=== PATIENT | female | born 1960 | race Caucasian/White ===

== ENCOUNTER 2017-05-03 10:12 | Outpatient (CLI) | payer MEDICARE ==
--- NOTE | 2017-05-03 15:35 | Diagnostic Imaging Report ---
CHAO PETERSEN [facility] [address] [facility] [address] [place], [place]. [address] Report Submission Date: May 03, 2017 12:33:27 PM CDT Patient Study Name: MARTINE VEGA Date: May 03, 2017 10:18:40 AM CDT Modality Type: CR Gender: F Description: CHEST : 58 Institution: [facility] Physician: CHAO PETERSEN Examination: PA and lateral chest. History: Evaluate lung ponce. Findings: PA lateral chest demonstrate a normal cardiac and mediastinal silhouette. No focal infiltrate. No effusion. No blunting of the costophrenic margins. Osseous structures are appropriate for age. Impression: No acute pulmonary process. Electronically signed on May 03, 2017 12:33:27 PM CDT by: James CARRIZALES
--- NOTE | 2017-05-03 15:36 | Diagnostic Imaging Report ---
CHAO PETERSEN [facility] [address] [facility].[address] [address] Report Submission Date: May 03, 2017 12:32:48 PM CDT Patient Study Name: MARTINE VEGA Date: May 03, 2017 10:23:37 AM CDT Modality Type: CR Gender: F Description: CHEST : 58 Institution: [facility] Physician: CHAO PETERSEN Examination: Plain film sternum History: Discomfort Comparison exams: None provided Findings: 2 views of the sternum demonstrates normal cortical margins. No evidence for fracture or posterior displacement. No retrosternal/anterior mediastinal soft tissue abnormalities. Impression: No sternal abnormalities. Electronically signed on May 03, 2017 12:32:48 PM CDT by: James CARRIZALES
== END 2017-05-03 10:13 ==
LOC: RAD 10:12
PROVIDERS: ATTEND Family Medicine
DX: R07.9 Chest pain, unspecified (principal)
CPT/HCPCS: 71020; 71120

== ENCOUNTER 2017-06-01 17:22 | Outpatient (CLI) | payer MEDICARE ==
[2017-06-01 17:50] LABS: eGFR (African) > 60; eGFR (Non-African) > 60
[2017-06-01 17:51] LABS: BASOPHILS % 0.7 (0.0-1.5); EOSINOPHILS % 1.5 % (0.0-6.8); MEAN CORPUSCULAR HEMOGLOBIN 30.7 pg (28.0-34.0); MEAN CORPUSCULAR VOLUME 88.7 fl (80.0-100.0); MONOCYTES % 5.1 % (0.0-11.0); NEUTROPHILS # 4.1 # k/uL (1.4-7.7)
== END 2017-06-01 17:23 ==
LOC: LAB 17:22
PROVIDERS: ATTEND Family Medicine
DX: R07.9 Chest pain, unspecified (principal)
CPT/HCPCS: 36415; 80048; 85025

== ENCOUNTER 2017-06-02 07:52 | Outpatient (CLI) | payer MEDICARE ==
--- NOTE | 2017-06-02 08:51 | Diagnostic Imaging Report ---
CHAO PETERSEN - RAFFI [facility] [address] [facility].[address] [address] Report Submission Date: Jun 02, 2017 8:36:05 AM CDT Patient Study Name: MARTINE VEGA Date: Jun 02, 2017 8:12:57 AM CDT Modality Type: CT\SR Gender: F Description: CT CHEST W/ CONTRAST : 58 Institution: [facility] Physician: CHAO PETERSEN - RAFFI CT chest with contrast. History: Chest pain and dyspnea on exertion. Technique: Transaxial computed tomography images of the chest were obtained following the uneventful administration of intravenous contrast according to standard protocol. Findings: The heart size is normal. There is no adenopathy present within the chest. Vascular structures are normal. The lungs are clear. No pleural effusion or pneumothorax identified. Small apical blebs are noted. Limited views of the upper abdomen are unremarkable. The osseous structures are normal. Impression: 1. Mild apical paraseptal emphysematous change noted. 2. No acute pulmonary infiltrate. Electronically signed on Jun 02, 2017 8:36:05 AM CDT by: Tomy CARRIZALES
== END 2017-06-02 07:53 ==
LOC: RAD 07:52
PROVIDERS: ATTEND Family Medicine
DX: R07.9 Chest pain, unspecified (principal)
CPT/HCPCS: 71260; Q9966

== ENCOUNTER 2017-10-21 08:50 | Outpatient (CLI) | payer MEDICARE ==
[2017-10-21 10:51] LABS: eGFR (African) > 60; eGFR (Non-African) > 60
== END 2017-10-21 08:52 ==
LOC: LAB 08:50
PROVIDERS: ATTEND Family Medicine
DX: Z13.6 Encounter for screening for cardiovascular disorders (principal)
CPT/HCPCS: 80053; 80061